=== PATIENT | female | born 1955 | race Caucasian/White ===

== ENCOUNTER 2017-05-02 09:31 | Day surgery (SDC) | payer OTHER, BC ==
[2017-05-02] MEDS ORDERED: FENTANYL PF 100MCG/2ML VIAL IV ONE (14:00)
[2017-05-02] MEDS ORDERED: PROPOFOL 10 MG/ML VIAL IV ONE (14:00)
[2017-05-02] MEDS ORDERED: LIDOCAINE 2% MDV (20MG/ML) 20ML VIAL IV ONE (14:00)
--- NOTE | 2017-05-06 16:41 | Operative Note ---
DATE OF SURGERY: 05/02/2017 OPERATION: ESOPHAGOGASTRODUODENOSCOPY with biopsies. INDICATION: Chronic gastroesophageal reflux with pyrosis. The patient had previous endoscopy in 2002 demonstrating a small hiatal hernia but was otherwise unremarkable. She is taking omeprazole 20 mg twice daily but has breakthrough symptoms particularly at night. ANESTHESIA: Intravenous sedation was administered by the department of anesthesiology and included Diprivan titrated to effect. PROCEDURE: Following informed consent from this alert individual, including a discussion of the risks and benefits of the procedure and an opportunity for the patient to ask questions, the patient was placed in the left lateral decubitus position. The Olympus DSV378 video endoscope was inserted into the esophagus without resistance. The proximal esophagus had a normal appearance with normal folds and distensibility. The mid esophagus likewise was free from abnormalities. The distal esophageal segment was free from ulcerations and erosions; however, there was some slight irregularity to the squamocolumnar junction. For this reason, biopsies were taken from this site. The stomach was then entered. There was a fair amount of retained bilious liquid within the stomach. There was linear streak erythema noted in the gastric antrum. No gretta ulcerations were noted. The pylorus was patent. The duodenal bulb, sweep and descending duodenum were examined in a serial fashion and demonstrated some mild inflammation in the duodenal bulb itself. Biopsies were taken from the duodenum. The endoscope was then withdrawn back into the stomach. Retroflexion accomplished following air insufflation revealed a small sliding type hiatal hernia. The endoscope was straightened. Biopsies were taken from the stomach to rule out Helicobacter pylori and check histology and as mentioned, a final set of biopsies was taken from the GE junction for very slight irregularity of this area. The endoscope was then withdrawn. The patient tolerated the procedure well and was returned to the recovery area in stable condition. IMPRESSION: 1. Slight irregularity at the squamocolumnar junction. Biopsies taken to rule out Pérez's esophagus. 2. Small sliding type hiatal hernia. 3. Linear antral gastritis. 4. Mild duodenitis involving the duodenal bulb. Biopsies taken. RECOMMENDATION: The patient will be tried on Protonix 40 mg twice daily to see if this controls her symptoms. Carafate can also be considered if Protonix is not of benefit. Perhaps this can help bind the gastric bile. Followup will be with Dr. Yani Dalal. As always, thank you for allowing me to participate in the care of your patient. Matthew Horn DO CC: Dr. Yani JOHNSON
== END 2017-05-02 11:55 | disposition home or self-care (01) ==
LOC: HOP 09:31
PROVIDERS: ATTEND Internal Medicine Gastroenterology
DX: K31.9 Disease of stomach and duodenum, unspecified (principal); K22.70 Barrett's esophagus without dysplasia; K29.50 Unspecified chronic gastritis without bleeding; K44.9 Diaphragmatic hernia without obstruction or gangrene; K29.80 Duodenitis without bleeding
CPT/HCPCS: 43239; 00740; J3010

== ENCOUNTER 2018-05-22 11:03 | Day surgery (SDC) | payer OTHER, BC ==
[2018-05-22] MEDS ORDERED: LIDOCAINE 1% MDV (10MG/ML) 20ML VIAL SQ ONE (11:04)
[2018-05-22] MEDS ORDERED: PROPOFOL 10 MG/ML VIAL IV ONE (11:04)
--- NOTE | 2018-06-08 16:01 | Operative Note ---
DATE OF SURGERY: 05/22/2018 Surgeon: Matthew Horn DO Referring physician: Noemi Mcclain MD OPERATION: COLONOSCOPY TO THE CECUM WITH ELECTROCAUTERY SNARE POLYPECTOMY x1 AND COLD SNARE POLYPECTOMY X1. INDICATION: Colorectal cancer screening. The patient's last colonoscopy was 10 years ago. Anesthesia: Intravenous sedation was administered by the Department of Anesthesiology and included Diprivan titrated to effect. PROCEDURE: Following informed consent from this alert individual, including a discussion of the risks and benefits of the procedure and opportunity for the patient to ask questions, the patient was in the left lateral decubitus position. Digital rectal examination was performed. No abnormalities were noted. Following this, the Olympus PCF 180 Video Colonoscope was inserted in the rectum without resistance. The rectal mucosa had a normal appearance with normal folds and distensibility. The sigmoid colon was cannulated, demonstrated a few scattered diverticula. The colonoscope was advanced further up through the bowel to the level of the cecum without much difficulty. Throughout the bowel, the mucosa appeared normal, folds were normal. The bowel was filled with distensible. Again, diverticulosis was noted in the sigmoid and descending colon. The colon preparation was good. The cecum was well defined by noting the appendiceal orifice and the ileocecal valve. From the base of the cecum, the colonoscope was then withdrawn. In the proximal ascending colon, there was a flat 5 mm polyp noted, which was removed with cold snare polypectomy. In the proximal descending colon, there was a 7 to 8 mm sessile polyp noted, which was removed with electrocautery snare polypectomy. Each polyp was recovered. Again, diverticulosis was noted in the left colon. Retroflexion in the rectum was endoscopically unremarkable. The endoscope was straightened and withdrawn. The patient tolerated the procedure well and was returned to the recovery area in stable condition. IMPRESSION: 1. A 5 mm proximal ascending colon flat polyp, removed with cold snare polypectomy. 2. A 7 to 8 mm sessile adenomatous-appearing polyp in the proximal descending colon, removed with electrocautery snare polypectomy. 3. Left colonic diverticulosis. RECOMMENDATIONS: The patient was advised that she should receive a copy of her pathology report at home in the next 2 to 3 weeks. If not, she is asked to call my office to review results of the testing today . Further recommendations may be forthcoming pending those results. Followup will also be with Dr. Noemi Mcclain. As always, thank you for allowing me to participate in the care of your patient. CC: MD Noemi Gao, MD Matthew Horn, DO JOHNSON
== END 2018-05-22 13:14 | disposition home or self-care (01) ==
LOC: HOP 11:03
PROVIDERS: ATTEND Internal Medicine Gastroenterology
DX: Z12.11 Encounter for screening for malignant neoplasm of colon (principal); D12.2 Benign neoplasm of ascending colon; D12.4 Benign neoplasm of descending colon; K57.30 Diverticulosis of large intestine without perforation or abscess without bleeding; I10 Essential (primary) hypertension; E78.00 Pure hypercholesterolemia, unspecified; K21.9 Gastro-esophageal reflux disease without esophagitis